=== PATIENT | male | born 1970 | race Caucasian/White ===

== ENCOUNTER 2018-08-17 08:35 | Observation (INO) | payer MEDICARE ==
[~2018-08-17] VITALS: Ht 185.4 cm; Wt 124.7 kg
[2018-08-17 08:45] LABS: BASOPHILS % (AUTO) 0.6 % (0.0-5.0); EOSINOPHILS % (AUTO) 1.1 % (0.0-8.0); LYMPHOCYTES % (AUTO) 11.2 % (21.0-51.0); MEAN CORPUSCULAR HGB CONC 33.1 g/dL (32.0-36.0); MEAN CORPUSCULAR VOLUME 93.7 fL (79-99); MONOCYTES % (AUTO) 7.5 % (3.0-13.0); NEUTROPHILS % (AUTO) 79.6 % (40.0-77.0); PLATELET COUNT (AUTO) 274 K/uL (130-400); RED BLOOD CELL COUNT(AUTO) 4.37 MIL/uL (4.50-6.20); RED CELL DISTRIBUTION WIDTH 13.7 % (11.0-15.5); WHITE BLOOD COUNT (AUTO) 8.5 K/uL (4.8-10.8)
[2018-08-17 08:57] LABS: POTASSIUM 3.7 mmol/L (3.5-5.1)
[2018-08-17 09:00] LABS: INR 0.94 (0.85-1.15); PARTIAL THROMBOPLASTIN TIME 28.1 SEC (26.3-35.5); PROTHROMBIN TIME 9.9 SEC (9.6-11.6)
[2018-08-17 09:01] LABS: ALBUMIN 3.1 g/dL (3.5-5.0); BILIRUBIN,TOTAL 0.2 mg/dL (0.2-1.0)
[2018-08-17] MEDS ORDERED: NITROGLYCERIN 0.4 MG SL TAB SL ONE (09:20)
[2018-08-17] MEDS ORDERED: METHYLPREDNISOLONE SOD SUCC 125MG/2ML VIAL ONE (09:26)
[2018-08-17] MEDS ORDERED: IPRATROPIUM/ALBUTEROL SULFATE 3 ML SOLUTION IH ONE ×2 (09:28→11:39)
[2018-08-17] MEDS ORDERED: LORAZEPAM 2 MG/ML 1 ML VIAL ONE ×2 (09:38→12:34)
[2018-08-17] MEDS ORDERED: MORPHINE SULFATE 4 MG/1ML SYG ONE ×2 (10:00→17:31)
[2018-08-17] MEDS ORDERED: MORPHINE SULFATE 2 MG/ML 1ML SYG IV PRN (11:30)
[2018-08-17] MEDS ORDERED: ONDANSETRON HCL 4 MG/2 ML VIAL IV PRN (11:30)
[2018-08-17] MEDS ORDERED: LACTULOSE 20 GM/30 ML UDCUP PO PRN (11:30)
[2018-08-17] MEDS ORDERED: HYDRALAZINE HCL 20 MG/ML VIAL IV PRN (11:30)
[2018-08-17] MEDS ORDERED: METOPROLOL TARTRATE 25 MG TAB PO SCH (11:30)
[2018-08-17] MEDS ORDERED: ACETAMINOPHEN 325 MG TAB PO PRN ×2 (11:30)
[2018-08-17] MEDS ORDERED: SODIUM CHLORIDE 0.9% 50 ML IV ONE (11:37)
[2018-08-17] MEDS ORDERED: CEFTRIAXONE SODIUM 1 GM ONE (11:37)
[2018-08-17 12:04] LABS: HEMOGLOBIN A1C 5.9 % (4.0-6.0)
[2018-08-17] MEDS ORDERED: AZITHROMYCIN 500MG+NS 250ML 250 ML IV ONE (12:18)
[2018-08-17] MEDS ORDERED: NITROGLYCERIN 1GM/1 INCH PACKET TD ONE ×2 (12:18→20:45)
[2018-08-17 12:23] LABS: CREATINE KINASE, TOTAL 156 U/L (21-232); MYOGLOBIN 63 ng/mL (10-92); PHOSPHORUS 1.7 mg/dL (2.5-4.9); TROPONIN I < 0.04 ng/mL (0.00-0.06)
[2018-08-17] MEDS ORDERED: MORPHINE SULFATE 2 MG/ML 1ML SYG ONE ×2 (17:01→22:33)
[2018-08-17] MEDS ORDERED: HYDROCHLOROTHIAZIDE 25 MG TABLET ONE (17:02)
[2018-08-17] MEDS ORDERED: METOPROLOL TARTRATE 25 MG TAB ONE (17:02)
[2018-08-17 19:44] LABS: CREATINE KINASE, TOTAL 96 U/L (21-232); MYOGLOBIN 39 ng/mL (10-92); TROPONIN I < 0.04 ng/mL (0.00-0.06)
[2018-08-17] MEDS ORDERED: METOPROLOL TARTRATE 50 MG TAB ONE (20:44)
[2018-08-17] MEDS ORDERED: FAMOTIDINE 20MG TAB 20 MG TAB ONE (20:44)
[2018-08-17] MEDS ORDERED: ATORVASTATIN CALCIUM 20 MG TABLET ONE (20:44)
[2018-08-17] MEDS: MIRTAZAPINE 15 MG TABLET PO SCH (21:00)
[2018-08-17] MEDS: ATORVASTATIN CALCIUM 20 MG TABLET PO SCH (21:00)
[2018-08-17 22:44] LABS: AMPHET/METH SCREEN,URINE POSITIVE (NEGATIVE); BARBITURATE SCREEN, URINE NEGATIVE (NEGATIVE); BENZODIAZEPINES SCREEN,URINE NEGATIVE (NEGATIVE); CANNABINOID SCREEN,URINE NEGATIVE (NEGATIVE); COCAINE SCREEN,URINE NEGATIVE (NEGATIVE); OPIATE SCREEN,URINE POSITIVE (NEGATIVE); PHENCYCLIDINE SCREEN,URINE NEGATIVE (NEGATIVE)
[2018-08-18] MEDS ORDERED: MORPHINE SULFATE 2 MG/ML 1ML SYG ONE (04:45)
[2018-08-18 05:40] LABS: CREATINE KINASE, TOTAL 82 U/L (21-232); MYOGLOBIN 57 ng/mL (10-92); TROPONIN I < 0.04 ng/mL (0.00-0.06)
[2018-08-18] MEDS ORDERED: NITROGLYCERIN 1GM/1 INCH PACKET TD ONE ×2 (06:27→14:29)
[2018-08-18] MEDS: ASPIRIN 325 MG TABLET PO SCH (09:00)
[2018-08-18] MEDS: HYDROCHLOROTHIAZIDE 25 MG TABLET PO SCH (09:00)
[2018-08-18] MEDS: ENOXAPARIN SODIUM 40 MG/0.4 ML SYRINGE SQ SCH (09:00)
[2018-08-18] MEDS: METOPROLOL TARTRATE 25 MG TAB PO SCH ×2 (09:00→21:44)
[2018-08-18] MEDS: CLOPIDOGREL BISULFATE 75 MG TAB PO SCH (09:00)
[2018-08-18] MEDS: LISINOPRIL 40 MG TABLET PO SCH (09:00)
[2018-08-18] MEDS: FAMOTIDINE 20MG TAB 20 MG TAB PO SCH ×2 (09:00→21:44)
[2018-08-18] MEDS ORDERED: MAGNESIUM 2GM PREMIX 50ML 50 ML IV SCH (09:15)
[2018-08-18] MEDS ORDERED: HYDROMORPHONE HCL 0.5 MG/0.5 ML ML IVP PRN (09:30)
[2018-08-18] MEDS ORDERED: FAMOTIDINE 20MG TAB 20 MG TAB ONE (09:34)
[2018-08-18] MEDS ORDERED: CLOPIDOGREL BISULFATE 75 MG TAB ONE (09:34)
[2018-08-18] MEDS ORDERED: METOPROLOL TARTRATE 50 MG TAB ONE (09:34)
[2018-08-18] MEDS ORDERED: HYDROMORPHONE 1 MG/1 ML AMP ONE ×2 (09:52→14:44)
[2018-08-18] MEDS ORDERED: FUROSEMIDE 20 MG TABLET ONE (09:53)
[2018-08-18] MEDS ORDERED: BUSPIRONE HCL 5 MG TABLET PO SCH (10:00)
[2018-08-18] MEDS ORDERED: LISINOPRIL 40 MG TABLET PO SCH (10:00)
[2018-08-18] MEDS: NITROGLYCERIN 1GM/1 INCH PACKET TD SCH ×2 (11:30→21:42)
[2018-08-18] MEDS ORDERED: ENOXAPARIN SODIUM 40 MG/0.4 ML SYRINGE SQ ONE (12:27)
[2018-08-18] MEDS ORDERED: MAGNESIUM 2GM PREMIX 50ML 50 ML IV ONE (12:28)
[2018-08-18] MEDS: BUSPIRONE HCL 5 MG TABLET PO SCH ×2 (14:00→21:45)
--- NOTE | 2018-08-18 14:42 | NUR ---
NURSING STAFF WAS TRYING TO OBTAIN PT'S DATABASE AND MEDICAL HISTORY AND PATIENT WAS BEING UNCOOPERATIVE BECAUSE HE WANTED TO HAVE HIS PAIN MED FIRST AND WILL ADVISE HOSPITALIST'S PA.
[2018-08-18 15:40] VITALS: BP 130/71
--- NOTE | 2018-08-18 16:00 | NUR ---
RECEIVED PATIENT FROM ER, DROWSY , AND WEARING HIS STREET CLOTHES. ORIENTED PATIENT TO ROOM. PATIENT VOICED THAT HE HAS CHEST PAIN THAT RADIATES TO HIS JAWS. HE IS REQUESTING FOR ANOTHER DOSE OF DILAUDID RIGHT NOW. VITAL SIGNS TAKEN. TELE PACK PLACED. PATIENT REFUSED TO BE INTERVIEWED TO COMPLETE ADMISSION DATA BASE AND HISTORY. HE BECOMES VERY ANXIOUS AND MAD, CURSING ME, STATING THAT HE HAD ALREADY TOLD HIS STORY MORE THAN 10 X TO EVERYBODY AND THAT I SHOULD JUST CHECK THE CHART AND GIVE HIM HIS PAIN MED. I INFORMED PATIENT THAT DILAUDID IS NOT DUE AT THIS TIME AND ONLY IV PRN MED IS MORPHINE. PATIENT CONTINUES TO CURSE STATING THAT DOCTORS SHOULD NOT "MESS WITH HIS MEDS" AND THAT THE ONLY PAIN MEDICATION THAT HELPS IS DILAUDID. FULL ASSESSMENT DONE. CALL LIGHT WITHIN REACH.
[2018-08-18] MEDS: HYDROMORPHONE 1 MG/1 ML AMP IVP PRN ×2 (17:53→21:44)
--- NOTE | 2018-08-18 19:20 | NUR ---
REFUSED VITAL SIGNS NURSE AID IN TO TAKE SCHEDULED VITAL SIGNS. PATIENT REFUSED AND STARTED SAYING CURSE WORDS AT NURSE AID. NOTIFIED HOSPITALIST NURSE PRACTITIONER, GENNARO. STATED TO LET PATIENT KNOW THAT PAIN MEDICATION CANNOT BE GIVEN IF VITAL SIGNS ARE NOT CHECKED. NOTIFIED PATIENT HE BECAME VERY AGGRESSIVE, VERBALLY ABUSIVE AND HOSTILE. CALLED SECURITY. ONCE PATIENT SAW EMBEDDED SYSTEMS DESIGNER IN HALLWAY HE BECAME CALM AND STATED HE WILL AGREE TO VITAL SIGNS CHECK SO HE CAN HAVE HIS PAIN MEDICINE. HE INFORMED ME NOT TO GIVE HIM MORPHINE BECAUSE IT "DOES NOTHING FOR ME. ONLY DILAUDID WORKS."
[2018-08-18] MEDS: ATORVASTATIN CALCIUM 20 MG TABLET PO SCH (21:44)
[2018-08-18] MEDS: MIRTAZAPINE 15 MG TABLET PO SCH (21:44)
--- NOTE | 2018-08-18 21:50 | NUR ---
PIV OUT FOUND PIV OUT FROM RIGHT HAND AND ON BED. AFTER ADMINISTERING DILAUDID AT 2144, I HAD DONE SITE CARE ON PIV RT HAND AND SECURED IT WELL WITH 2 OP SITES AND TAPE. BLOOD STAINED LINEN NOTED. COVERED IV SITE WITH 2X2 GAUZE. BLEEDING STOPPED. STATED "MUST HAVE GOT CAUGHT IN BLANKETS." NEW PIV INITIATED ON LEFT HAND X3 ATTEMPTS.
[2018-08-18 22:13] VITALS: BP 152/74
[2018-08-19 00:24] VITALS: BP 139/76
[2018-08-19] MEDS: HYDROMORPHONE 1 MG/1 ML AMP IVP PRN ×3 (01:37→09:40)
[2018-08-19] MEDS: NITROGLYCERIN 1GM/1 INCH PACKET TD SCH ×2 (03:15→13:17)
[2018-08-19 03:45] VITALS: BP 128/80
[2018-08-19 05:13] LABS: HEMATOCRIT 40.4 % (42-54); MEAN CORPUSCULAR HEMOGLOBIN 30.9 pg (27.0-33.0); MEAN CORPUSCULAR VOLUME 93.6 fL (79-99); PLATELET COUNT (AUTO) 341 K/uL (130-400); RED BLOOD CELL COUNT(AUTO) 4.31 MIL/uL (4.50-6.20); RED CELL DISTRIBUTION WIDTH 13.8 % (11.0-15.5); WHITE BLOOD COUNT (AUTO) 9.3 K/uL (4.8-10.8)
[2018-08-19 05:18] LABS: POTASSIUM 4.1 mmol/L (3.5-5.1)
[2018-08-19 07:15] VITALS: BP 131/92
--- NOTE | 2018-08-19 08:00 | NUR ---
AM ASSESSMENT PT LAYING IN BED, RESTING. A/O X 3. NO SOB. NO DISTRESS NOTED. DENIES CHEST PAIN OR DISCOMFORT. DENIES PALPITATIONS @ THIS TIME. TELE: SR 60s. DENIES N/V AND/OR DIARRHEA. PT ANXIOUS, HOSTILE, COOPERATIVE. INSTRUCTED TO CALL FOR ASSISTANCE. CALL MARTA W/IN REACH.
[2018-08-19] MEDS ORDERED: FUROSEMIDE 20 MG TABLET PO SCH (09:00)
[2018-08-19] MEDS: ASPIRIN 325 MG TABLET PO SCH (09:40)
[2018-08-19] MEDS: FAMOTIDINE 20MG TAB 20 MG TAB PO SCH (09:40)
[2018-08-19] MEDS: CLOPIDOGREL BISULFATE 75 MG TAB PO SCH (09:40)
[2018-08-19] MEDS: BUSPIRONE HCL 5 MG TABLET PO SCH ×2 (09:40→13:17)
[2018-08-19] MEDS: ENOXAPARIN SODIUM 40 MG/0.4 ML SYRINGE SQ SCH (09:41)
[2018-08-19] MEDS: METOPROLOL TARTRATE 25 MG TAB PO SCH (09:41)
[2018-08-19] MEDS: LISINOPRIL 40 MG TABLET PO SCH (09:41)
[2018-08-19] MEDS: HYDROCHLOROTHIAZIDE 25 MG TABLET PO SCH (09:44)
--- NOTE | 2018-08-19 11:24 | NUR ---
cm note discussed case with FOOD OPERATIONS MANAGER , and states pt ismedically clear and requires IP psyche as per dr courtney otto, spoke to pt re this, and is not really wanting to say to much, says wants to try to go [facility], referral called in to [facility] to [facility] person. at [phone]. states will send someone to evaluate. Addendum: 08/19/18 at 1128 by PAVAN SAENZ Amended: Links added.
[2018-08-19 12:02] VITALS: BP 152/100
--- NOTE | 2018-08-19 12:15 | NUR ---
STATUS PIV 20G LH PULLED OUT BY PT WHEN TRYIN TO REACH OUT FOR LUNCH TRAY. CATHETER TIP INTACT. TAPE & GAUZE APPLIED.
--- NOTE | 2018-08-19 14:49 | NUR ---
[place] NAFISA MOREIRA FROM [facility] HERE TO ASSESS PT. PT STATES BEING A . PER Svetlana MOREIRA, [facility] DOES NOT [facility]. C ALTON KITCHEN NOTIFIED.
--- NOTE | 2018-08-19 14:50 | NUR ---
cm note received call from [facility] piano case maker and states willl not be able to accept pt due to he is a [facility] pt, unable to initiate ip psyche, sonya primary nurse, that pt wishes to leave hospital. informed that he should stay until placement is arranged, states will try to explain to him.
--- NOTE | 2018-08-19 14:53 | NUR ---
STATUS PT UPSET @ [facility] NOT TAKING [facility]. INSISTS HE NOTIFIED STAFF HE WAS GOING TO GO [facility]. PT DENIES BEING A PT @ THIS FACILITY, BUT PERSONAL BELONGINGS ARE FOUND THERE. PT REMOVES HOSPITAL GOWN & CHANGES INTO PERSONAL CLOTHING UPSET. WHILE CHANGING PT STATES HE WILL BE LEAVING THIS HOSPITAL. INFORMED PT LEAVE WOULD BE AMA. AMA EXPLAINED. REINFORCED DR HASN'T GIVEN DISCHARGE ORDER. PT STATES UNDERSTANDING.
--- NOTE | 2018-08-19 14:57 | NUR ---
AMA AMA FORM EXPLAINED TO PT. PT CONTINUES TO BE UPSET. AMA FORM SIGNED BY PT.
--- NOTE | 2018-08-19 15:00 | NUR ---
MD RAMON CHILEL NP NOTIFIED PT LEFT AMA.
--- NOTE | 2018-08-19 15:05 | NUR ---
cm note call made to [facility] and spoke to [facility] at intake and provided demographic info and referral. states to fax labwork on pt to fax #[phone]. as speaking to him. states pt by that name at their lobby, states is at [facility] facility. informed him if he is there he left without permission, and agaiinst medical advice due to he was not placed yet. per [facility]. [facility] they will follow their administrative actions at their facility accordingly. all info faxed as requested. updated warehouse insulation worker on above. verified pt left AMA. called back to dena jones to update pt did leave AMA.
== END 2018-08-19 15:00 | disposition left against medical advice (07) ==
LOC: EDH 08:35 → EDHIP 11:27 → 2AH 08-18 14:49
PROVIDERS: ADMIT Internal Medicine; ATTEND Internal Medicine
DX: M94.0 Chondrocostal junction syndrome [Tietze] (principal); E83.42 Hypomagnesemia; R45.851 Suicidal ideations; E83.39 Other disorders of phosphorus metabolism; I16.0 Hypertensive urgency; I10 Essential (primary) hypertension; I25.10 Atherosclerotic heart disease of native coronary artery without angina pectoris; E66.9 Obesity, unspecified; E78.5 Hyperlipidemia, unspecified; I69.351 Hemiplegia and hemiparesis following cerebral infarction affecting right dominant side; I25.2 Old myocardial infarction; F15.90 Other stimulant use, unspecified, uncomplicated; F11.90 Opioid use, unspecified, uncomplicated; F17.210 Nicotine dependence, cigarettes, uncomplicated; Z91.19 Patient's noncompliance with other medical treatment and regimen; Z95.5 Presence of coronary angioplasty implant and graft; Z79.899 Other long term (current) drug therapy
CPT/HCPCS: 36415 ×3; 71045; 80048; 80053; 80305; 82550 ×3; 83036; 83605; 83735; 83874 ×3; 83880; 84100; 84484 ×5; 85025; 85027; 85610; 85730; 87040 ×2; 87804 ×2; 93005 ×4; 94640 ×2; 96372; 96374; 96376 ×2; 99291; A4218; G0378 ×52; J0456; J0696; J1170 ×7; J1650 ×2; J2060 ×2; J2270 ×2; J2930; J3475